=== PATIENT | female | born 1960 | race Caucasian/White ===

== ENCOUNTER → 2019-05-28 | Outpatient (CLI) | payer OTHER ==
--- NOTE | 2019-05-28 16:23 | CARD ---
MR#: [id number] Date of Study: 05/28/2019 Ordering Physician: KIMBERLY ECHEVARRIA, Referring Physician: KIMBERLY ECHEVARRIA, Tech: Lucila Casillas APPROVED REPORT EXAM: Two-dimensional and M-mode echocardiogram with Doppler and color Doppler. Other Information Quality : FairHR: 77bpm Technically limited study due to body habitus and smoking. INDICATION Palpitations RISK FACTORS Previous smoker 2D DIMENSIONS RVDd2.6 (2.9-3.5cm)Left Atrium(2D)2.9 (1.6-4.0cm) IVSd1.0 (0.7-1.1cm)Aortic Root(2D)2.6 (2.0-3.7cm) LVDd4.3 (3.9-5.9cm)LVOT Diameter1.9 (1.8-2.4cm) PWd1.0 (0.7-1.1cm)LVDs2.0 (2.5-4.0cm) FS (%) 54.0 %SV69.2 ml LVEF(%)85.1 (>50%) Aortic Valve AoV Peak Miguelito.174.0cm/sAoV VTI35.9cm AO Peak GR.12.1mmHgLVOT Peak Miguelito.87.3cm/s LVOT VTI 17.49cmAO Mean GR.7mmHg ADELE (VMAX)1.64ww5LCE (VTI)1.42cm2 Mitral Valve MV E Ruwgwgjt79.9cm/sMV DECEL [id number] MV A Pitmkvek013.9cm/sMV [id number] E/A Ratio0.9MVA (PHT)2.35cm2 TDI E/Lateral E'11.9E/Medial E'11.4 Pulmonary Valve PV Peak Zwqvhdix384.4cm/sPV Peak Grad.5mmHg Tricuspid Valve TR P. Lzceuyue633cl/sRAP [id number] TR Peak Gr.17jzZnYZHA26thMy Pulmonary Vein S1 Gznrxfka81.2cm/sD2 Brlarwcj79.1cm/s PVa xtdexunm050urla LEFT VENTRICLE The left ventricle is normal size. There is borderline concentric left ventricular hypertrophy. The l eft ventricular systolic function is normal. The Ejection Fraction is 60-65%. There is normal LV segm ental wall motion. Transmitral Doppler flow pattern is Grade I-abnormal relaxation pattern. RIGHT VENTRICLE The right ventricle is normal size. There is normal right ventricular wall thickness. The right ventr icular systolic function is normal. ATRIA The left atrium size is normal. The right atrium size is normal. The interatrial septum is intact wit h no evidence for an atrial septal defect or patent foramen ovale as noted on 2-D or Doppler imaging. AORTIC VALVE The aortic valve is not well visualized. Doppler and Color Flow revealed no significant aortic regurg itation. There is no significant aortic valvular stenosis. MITRAL VALVE The mitral valve is normal in structure and function. There is no evidence of mitral valve prolapse. There is no mitral valve stenosis. Doppler and Color-flow revealed trace mitral regurgitation. TRICUSPID VALVE The tricuspid valve is not well visualized. Doppler and Color Flow revealed trace tricuspid regurgita tion with an estimated PAP of 40 mmHg. There is no tricuspid valve stenosis. PULMONIC VALVE The pulmonic valve is not well visualized. Doppler and Color Flow revealed no pulmonic valvular regur gitation. GREAT VESSELS The aortic root is normal in size. The IVC is normal in size and collapses >50% with inspiration. PERICARDIAL EFFUSION There is no evidence of significant pericardial effusion. Critical Notification Critical Value: No <Conclusion> The left ventricular systolic function is normal. The Ejection Fraction is 60-65%. There is normal LV segmental wall motion. Transmitral Doppler flow pattern is Grade I-abnormal relaxation pattern. Trace mitral regurgitation. Trace tricuspid regurgitation with an estimated PAP of 40 mmHg. There is no evidence of significant pericardial effusion. Signed by : Earnest Campbell, Electronically Approved : 05/28/2019 16:22:25
== END ==
LOC: ECHO 14:34
PROVIDERS: ATTEND Internal Medicine
DX: I51.7 Cardiomegaly (principal)
CPT/HCPCS: 93306